=== PATIENT | female | born 1980 | race Caucasian/White ===

== ENCOUNTER 2016-07-28 18:12 | Emergency (ER) | payer OTHER ==
[~2016-07-28] VITALS: Wt 67.0 kg
[~2016-07-28 18:12] MED LIST: ACET1TAB40 PO; ACET325T45 PO; AMO500 PO; IBUP-1542 PO; PANT40TA3 PO
[2016-07-28] MEDS ORDERED: IBUP-1542 PO (19:04)
[2016-07-28] MEDS ORDERED: GUAI120S26 PO (19:04)
[2016-07-28] MEDS ORDERED: CETI10CA PO (19:04)
--- NOTE | 2016-07-28 19:08 | ERD ---
ER Documentation Chief Complaint Date/Time DATE: 07/28/16 TIME: 19:06 Chief Complaint SORE THROAT AND COUGH AND RUNNY NOSE FOR A MONTH NO DISTRESS HPI 36 or female presents to emergency department for complaints of cough and runny nose congestion and sore throat on and off for amount, now is having symptoms for the last 2 days. Patient has been having dry cough, does not cough up any phlegm or blood. Patient does not have any shortness of breath wheezing. Patient gets the symptoms on and off, got better, started to have the symptoms again in the last 2 days. Patient took some Tylenol for the sore throat with mild relief. Patient does not have dyspnea on exertion or dyspnea on lying him. Patient does not have any chest pain or palpitation. Patient does not have any fever or chills. ROS All systems reviewed and are negative except as per history of present illness. Medications Home Meds Active Scripts Ibuprofen* (Motrin*) 600 Mg Tab, 600 MG PO Q6H Y for PAIN AND OR ELEVATED TEMP, #30 TAB Prov:LIO PINTO NP 07/28/16 Cetirizine Hcl* (Zyrtec*) 10 Mg Capsule, 10 MG PO DAILY, #30 TAB.CHEW Prov:LIO PINTO NP 07/28/16 Uymuwxhulur-D-Xlcomvgbed Hb* (Guaifenesin* DM Syrup) 120 Ml Syrup, 10 ML PO Q4H Y for COUGH, #120 ML Prov:LIO PINTO NP 07/28/16 Amoxicillin* (Amoxicillin*) 500 Mg Cap, 500 MG PO TID for 10 Days, CAP Prov:MELISSA LAMAS DO 01/24/16 Acetaminophen* (Acetaminophen*) 325 Mg Tablet, 325 MG PO Q4H Y for PAIN AND OR ELEVATED TEMP, #30 TAB Prov:MELISSA LAMAS DO 01/24/16 Ibuprofen* (Ibuprofen*) 600 Mg Tablet, 600 MG PO Q8, #20 TAB Prov:MELISSA LAMAS DO 01/24/16 Acetaminophen-Codeine* (Acetaminophen-Cod #3*) 300-30 Mg Tab, 1 TAB PO Q4H Y for PAIN, #14 TAB Prov:CARSON HILL MD 01/30/15 Pantoprazole* (Protonix*) 40 Mg Tablet.dr, 40 MG PO DAILY, #20 TAB Prov:CARSON HILL MD 01/30/15 Ibuprofen* (Motrin*) 600 Mg Tab, 600 MG PO Q6, #20 TAB Prov:CARSON HILL MD 12/24/14 Allergies Allergies: Coded Allergies: No Known Allergy (Unverified , 06/02/14) PMhx/Soc History of Surgery: Yes (C SECTION X 2 ) Hx Alcohol Use: No Hx Substance Use: No Hx Tobacco Use: No FmHx Family History: No coronary disease, No diabetes, No other Physical Exam Vitals Vital Signs Date Time Temp Pulse Resp B/P Pulse Ox O2 Delivery O2 Flow Rate FiO2 07/28/16 18:21 99.2 72 20 114/75 100 Physical Exam GENERAL: The patient is well developed and appropriate for usual state of health, in no apparent distress. HEENT: Atraumatic. Ears: Normal tympanic membrane, no erythema or bulging. No ear canal swelling. No ear discharge. Nose: Erythematous nasal turbinates with clear nasal discharge. Throat: oropharynx erythematous with postnasal drip. No tonsillar swelling or tonsillar exudates. No lymphadenopathy. CHEST: Clear to auscultation bilaterally. There are no rales, wheezes or rhonchi. HEART: Regular rate and rhythm. No murmurs, clicks, rubs or gallops. No S3 or S4. ABDOMEN: Soft, nontender and nondistended. Good bowel sounds. No rebound or guarding. No gross peritonitis. No gross organomegaly or masses. No Wang sign or McBurney point tenderness. BACK: No midline or flank tenderness. EXTREMITIES: Equal pulses bilaterally. There is no peripheral clubbing, cyanosis or edema. No focal swelling or erythema. Full range of motion. Grossly neurovascularly intact. NEURO: Alert and oriented. Cranial nerves 2-12 intact. Motor strength in all 4 extremities with 5/5 strength. Sensation grossly intact. Normal speech and gait. SKIN: There is no apparent rash or petechia. The skin is warm and dry. HEMATOLOGIC AND LYMPHATIC: There is no evidence of excessive bruising or lymphedema. No gross cervical, axillary, or inguinal lymphadenopathy. Procedures/MDM Medical Decision Making: Patient symptoms are most likely consistent with upper respiratory tract infection which viral in origin. There is low suspicion for Pneumonia at this time since patients lungs sounds are clear, patient O2 saturation is normal and patient doesnt show any respiratory distress. Radiology exam is not indicated at this time. There is low suspicion for other cardiopulmonary emergencies at this time such as CHF, Pulmonary Embolism, Pneumothorax, Aortic Aneurysm or any other cardiopulmonary emergencies at this time. There is low suspicion for sepsis. Patient appears well and is hemodynamically stable. Fever is controlled with medicines. Disposition: Home. Condition: Stable Prescriptions: Guaifenesin DM Zyrtec ibuprofen Instructions: Patient is advised to take medications as prescribed. Patient is advised to rest. Patient advised to increase fluid intake, do humidifier at home and if possible, do salt water gargles. Patient is advised that if symptoms are worse, shortness of breath, uncontrolled fever, stridor, vomiting, worst signs and symptoms to return to emergency department immediately. Otherwise, patient is advised to follow up with primary doctor in 5-7 days. Departure Diagnosis: Primary Impression: URI (upper respiratory infection) URI type: unspecified viral URI Qualified Code: J06.9 - Viral upper respiratory tract infection Condition: Stable Patient Instructions: Uri, Viral, No Abx (Adult) LIO PINTO NP Jul 28, 2016 19:08
== END 2016-07-28 19:06 | disposition home or self-care (01) ==
LOC: E/R 18:12
DX: J06.9 Acute upper respiratory infection, unspecified (principal)
CPT/HCPCS: 99283

== ENCOUNTER 2016-10-18 22:02 | Emergency (ER) | payer OTHER ==
[~2016-10-18] VITALS: Ht 152.4 cm; Wt 71.0 kg
[~2016-10-18 22:02] MED LIST changes: +CETI10CA PO; +GUAI120S26 PO
[2016-10-18 22:05] VITALS: Ht 152.4 cm; Wt 71.0 kg
[2016-10-18 22:58] LABS: URINE BLOOD (Dip) POC Negative (NEGATIVE)
[2016-10-18 23:15] LABS: ADD SCAN DIFF NO
[2016-10-18 23:16] LABS: BASOPHILS % 0.3 % (0.0-2.0); EOSINOPHILS # 0.1 10^3/ul (0.0-0.5); EOSINOPHILS % 0.7 % (0.0-7.0); HEMATOCRIT 36.5 % (37.0-47.0); HEMOGLOBIN 12.7 g/dl (12.0-16.0); LYMPHOCYTES # 3.2 10^3/ul (0.8-2.9); LYMPHOCYTES % 27.4 % (15.0-51.0); MEAN CORPUSCULAR HEMOGLOBIN 30.7 pg (29.0-33.0); MEAN CORPUSCULAR HGB CONC 34.8 g/dl (32.0-37.0); MEAN CORPUSCULAR VOLUME 88.2 fl (82.0-101.0); MEAN PLATELET VOLUME 11.2 fl (7.4-10.4); MONOCYTE # 0.7 10^3/ul (0.3-0.9); MONOCYTES % 6.2 % (0.0-11.0); NEUTROPHIL # 7.6 10^3/ul (1.6-7.5); NEUTROPHILS % 65.1 % (39.0-77.0); PLATELET COUNT 226 10^3/UL (140-415); RED BLOOD COUNT 4.14 10^6/ul (4.20-5.40); RED CELL DISTRIBUTION WIDTH 12.6 % (11.5-14.5); WHITE BLOOD COUNT 11.7 10^3/ul (4.8-10.8)
[2016-10-18 23:39] LABS: ALBUMIN/GLOBULIN RATIO 1.11; BILIRUBIN,INDIRECT 0.2 mg/dl (0-1.1); BILIRUBIN,TOTAL 0.2 mg/dl (0.2-1.3); CALCIUM 9.2 mg/dl (8.4-10.2); CREATININE 0.66 mg/dl (0.44-1.00); POTASSIUM 4.3 mmol/L (3.5-5.1); TOTAL PROTEIN 7.6 g/dl (6.1-8.1)
--- NOTE | 2016-10-19 01:15 | RADRPT ---
PROCEDURE: CT abdomen and pelvis without intravenous contrast. CLINICAL INDICATION: Right lower quadrant pain. TECHNIQUE: CT of the abdomen/pelvis was performed utilizing axial images with reconstructions in s agittal and coronal planes. The administered radiation dose is CTDI 9.4 mGy, DLP 529 mGy-cm. COMPARISON: No pertinent prior examinations were submitted for comparison. FINDINGS: Visualized Chest: The visualized lung bases are clear. Abdomen: The liver, spleen, pancreas, gallbladder,and adrenal glands are unremarkable. The kidneys are without hydronephrosis. No definite urinary calculi are seen. There is no evidence of bowel obstruction. The appendix is not seen. There is no evidence of acute appendicitis. No intra-abdominal free air is seen. There is no evidence of intra-abdominal adenopathy or free fluid. Pelvis: Large cystic lesions are noted within the pelvis bilaterally, including a 5.6 x 8.7 cm septated lesi on on the right and a 5.9 x 4.5 cm lesion on the left. These are presumably within the ovaries. Th e uterus is slightly prominent in size with a prominent endometrium. There is no pelvic adenopathy or free fluid. The urinary bladder is unremarkable. Osseous structures: Unremarkable. IMPRESSION: Large cystic ovarian lesions within the pelvis along with enlargement of the endometrium and likely some endometrium thickening. Please refer to the separately dictated ultrasound of the pelvis. No evidence of acute appendicitis. RPTAT: HIKT .Neymar Duarte MD, MD Date Time Electronically viewed and signed by .Neymar Duarte MD, on 10/19/2016 01:14 .T/
--- NOTE | 2016-10-19 01:34 | ERD ---
ER Documentation Chief Complaint Date/Time DATE: 10/19/16 TIME: 01:30 Chief Complaint Pelvic pain. denies dysuria. LMP 09/29/16 and not aware if she is HPI Patient is a 36-year-old female who presents emergency department with right lower quadrant pain 3 days. States the pain is getting gradually worse. Patient states the pain is colicky in nature. Patient denies taking any pain medication. Patient states she did vomit 1 yesterday. Patient reports nonbloody nonbilious vomiting. Patient states her last menstrual period was on 09-29-16 however she is unsure if she is . Patient denies any dysuria, frequency, urgency or hematuria. Patient denies any fevers, chills, chest pain , shortness of breath, nausea, diarrhea or loss of consciousness. She does admit to having C-sections, + history of abdominal surgeries. No recent travel. No sick contacts. ROS All systems reviewed and are negative except as per history of present illness. Medications Home Meds Active Scripts Ibuprofen* (Motrin*) 600 Mg Tab, 600 MG PO Q6, #30 TAB Prov:IKER PAUL PA-C 10/19/16 Ibuprofen* (Motrin*) 600 Mg Tab, 600 MG PO Q6H Y for PAIN AND OR ELEVATED TEMP, #30 TAB Prov:LIO PINTO NP 07/28/16 Cetirizine Hcl* (Zyrtec*) 10 Mg Capsule, 10 MG PO DAILY, #30 TAB.CHEW Prov:LIO PINTO NP 07/28/16 Tjtsjfycuni-S-Ilbdghajkl Hb* (Guaifenesin* DM Syrup) 120 Ml Syrup, 10 ML PO Q4H Y for COUGH, #120 ML Prov:LIO PINTO MACHINE HAMPER MAKER 07/28/16 Amoxicillin* (Amoxicillin*) 500 Mg Cap, 500 MG PO TID for 10 Days, CAP Prov:MELISSA LAMAS DO 01/24/16 Acetaminophen* (Acetaminophen*) 325 Mg Tablet, 325 MG PO Q4H Y for PAIN AND OR ELEVATED TEMP, #30 TAB Prov:MELISSA LAMAS DO 01/24/16 Ibuprofen* (Ibuprofen*) 600 Mg Tablet, 600 MG PO Q8, #20 TAB Prov:MELISSA LAMAS DO 01/24/16 Acetaminophen-Codeine* (Acetaminophen-Cod #3*) 300-30 Mg Tab, 1 TAB PO Q4H Y for PAIN, #14 TAB Prov:CARSON HILL MD 01/30/15 Pantoprazole* (Protonix*) 40 Mg Tablet.dr, 40 MG PO DAILY, #20 TAB Prov:CARSON HILL MD 01/30/15 Ibuprofen* (Motrin*) 600 Mg Tab, 600 MG PO Q6, #20 TAB Prov:CARSON HILL MD 12/24/14 Allergies Allergies: Coded Allergies: No Known Allergy (Unverified , 06/02/14) PMhx/Soc History of Surgery: Yes (c/section x 2) Hx Alcohol Use: No Hx Substance Use: No Hx Tobacco Use: No Smoking Status: Never smoker Physical Exam Vitals Vital Signs Date Time Temp Pulse Resp B/P Pulse Ox O2 Delivery O2 Flow Rate FiO2 10/18/16 22:05 98.2 69 20 124/74 100 Physical Exam GENERAL: Well-developed, well-nourished female. Appears in no acute distress. HEAD: Normocephalic, atraumatic. EYES: Pupils are equally reactive bilaterally. EOMs grossly intact. No conjunctival erythema. ENT: Moist mucous membranes. No uvula deviation. No kissing tonsils. NECK: Supple. No meningismus. Normal range of motion of the neck. LUNG: Clear to auscultation bilaterally. No rhonchi, wheezing, rales or coarse breath sounds. HEART: Regular rate and rhythm. No murmurs, rubs or gallops. ABDOMEN: No rashes noted. Soft and nondistended. Slightly tender to palpation in the right lower quadrant and right pelvic region. Positive bowel sounds in all four quadrants. No rebound tenderness, no guarding. (-) McBurney's point tenderness. No CVA tenderness. BACK: No midline tenderness. EXTREMITIES: Equal pulses bilaterally. No peripheral clubbing, cyanosis or edema. No unilateral leg swelling. NEUROLOGIC: Alert and oriented. Moving all four extremities without any difficulty. Normal speech. Steady gait. SKIN: Normal color. Warm and dry. No rashes or lesions. Result Diagram: 10/18/16 2300 10/18/16 2300 Results 24 hrs Laboratory Tests Test 10/18/16 22:59 10/18/16 23:00 Bedside Urine pH (LAB) 5.5 Bedside Urine Protein (LAB) Negative Bedside Urine Glucose (UA) Negative Bedside Urine Ketones (LAB) Negative Bedside Urine Blood Negative Bedside Urine Nitrite (LAB) Negative Bedside Urine Leukocyte Esterase (L Negative White Blood Count 11.710^3/ul Red Blood Count 4.1410^6/ul Hemoglobin 12.7g/dl Hematocrit 36.5% Mean Corpuscular Volume 88.2fl Mean Corpuscular Hemoglobin 30.7pg Mean Corpuscular Hemoglobin Concent 34.8g/dl Red Cell Distribution Width 12.6% Platelet Count 20933^3/UL Mean Platelet Volume 11.2fl Neutrophils % 65.1% Lymphocytes % 27.4% Monocytes % 6.2% Eosinophils % 0.7% Basophils % 0.3% Nucleated Red Blood Cells % 0.0/100WBC Neutrophils # 7.610^3/ul Lymphocytes # 3.210^3/ul Monocytes # 0.710^3/ul Eosinophils # 0.110^3/ul Basophils # 0.010^3/ul Nucleated Red Blood Cells # 0.010^3/ul Sodium Level 139mmol/L Potassium Level 4.3mmol/L Chloride Level 108mmol/L Carbon Dioxide Level 24mmol/L Anion Gap 11 Blood Urea Nitrogen 12mg/dl Creatinine 0.66mg/dl Glucose Level 99mg/dl Calcium Level 9.2mg/dl Total Bilirubin 0.2mg/dl Direct Bilirubin 0.00mg/dl Indirect Bilirubin 0.2mg/dl Aspartate Amino Transf (AST/SGOT) 21IU/L Alanine Aminotransferase (ALT/SGPT) 29IU/L Alkaline Phosphatase 65IU/L Total Protein 7.6g/dl Albumin 4.0g/dl Globulin 3.60g/dl Albumin/Globulin Ratio 1.11 Lipase 96U/L Current Medications Medications (Trade) Dose Ordered Sig/Ramonita Route PRN Reason Start Time Stop Time Status Last Admin Dose Admin Ketorolac Tromethamine (Toradol) 30 mg ONCE STAT IM 10/19/16 01:46 10/19/16 01:53 DC Ibuprofen (Motrin) 600 mg ONCE ONCE PO 10/19/16 02:00 10/19/16 02:01 10/19/16 01:54 Procedures/MDM ED COURSE: The patient was stable throughout ED course. I kept the patient and/or family informed of laboratory and diagnostic imaging results throughout the ED course. DIAGNOSTIC IMAGING: Read by radiologist. DIAGNOSTIC IMAGING REPORT Patient: MARSHALL CORTES : 1980 Age: 36 Sex: F MR #: [id number] DOS: 10/18/16 2324 Ordering MD: IKER PAUL PA-C Location: [facility] Room/Bed: PROCEDURE: CT abdomen and pelvis without intravenous contrast. CLINICAL INDICATION: Right lower quadrant pain. TECHNIQUE: CT of the abdomen/pelvis was performed utilizing axial images with reconstructions in sagittal and coronal planes. The administered radiation dose is CTDI 9.4 mGy, DLP 529 mGy-cm. COMPARISON: No pertinent prior examinations were submitted for comparison. FINDINGS: Visualized Chest: The visualized lung bases are clear. Abdomen: The liver, spleen, pancreas, gallbladder,and adrenal glands are unremarkable. The kidneys are without hydronephrosis. No definite urinary calculi are seen. There is no evidence of bowel obstruction. The appendix is not seen. There is no evidence of acute appendicitis. No intra-abdominal free air is seen. There is no evidence of intra-abdominal adenopathy or free fluid. Pelvis: Large cystic lesions are noted within the pelvis bilaterally, including a 5.6 x 8.7 cm septated lesion on the right and a 5.9 x 4.5 cm lesion on the left. These are presumably within the ovaries. The uterus is slightly prominent in size with a prominent endometrium. There is no pelvic adenopathy or free fluid. The urinary bladder is unremarkable. Osseous structures: Unremarkable. IMPRESSION: Large cystic ovarian lesions within the pelvis along with enlargement of the endometrium and likely some endometrium thickening. Please refer to the separately dictated ultrasound of the pelvis. No evidence of acute appendicitis. RPTAT: HIKT .Neymar Duarte MD, MD Date Time Electronically viewed and signed by .Neymar Duarte MD, on 10/19/2016 01:14 .T/ CC: IKER PAUL PA-C Patient Name Marshall Cortes Study Date 10/18/2016 11:34 PM Patient 1980 Accession No. [id number] Referring Physician Iker Paul Pa-c PROCEDURE: Ultrasound of the pelvis. CLINICAL INDICATION: Pain TECHNIQUE: Transabdominal and transvaginal ultrasound of the pelvis was performed to better evaluate the pelvic viscera. COMPARISON: No pertinent prior examinations were submitted for comparison. FINDINGS: LAST MENSTRUAL PERIOD: Unavailable UTERUS: Size: 10.9 x 5.8 x 6.5 cm. The uterine texture is homogeneous. The endometrium measures 27 mm which is thickened. The head there is a 1.8 x 1.5 x 1.6 cm avascular homogeneously echogenic structure within the endometrium at the fundus. RIGHT OVARY: Size: 8.8 x 6 x 8.5 cm. At least 3 large cysts are noted within the right ovary , measuring up to 6.1 cm. These are anechoic. Normal Doppler flow is noted to the right ovary. LEFT OVARY: Size: 7.5 x 6.6 x 6 cm. There is a simple cyst within the left ovary which measures up to 5.8 cm. Normal Doppler flow is noted to the left ovary. CUL-DE-SAC: There is a small amount of pelvic free fluid. IMPRESSION: Thickened endometrium containing an echogenic avascular structure, possibly some clot. Correlation with gynecologic examination is suggested. Large bilateral ovarian cysts. Vascular flow within both ovaries suggesting torsion is unlikely. RPTAT: HIKT Signed By: Neymar Duarte 10/19/2016 1:21:21 AM MEDICATIONS GIVEN: [None.] Patient tolerated medication well with no adverse reactions. Patient reported improvement in pain. MEDICAL DECISION MAKING: This is a 36-year-old female presents with right lower quadrant pain 3 days. Patient did report one episode of nonbloody some bloody vomiting yesterday. Vital signs were reviewed. Patient is afebrile. CBC showed no evidence of severe anemia. Patient is white count was noted to be 11.7. CMP showed no evidence of electrolyte abnormalities, severe acidosis, alkalosis, renal failure, or liver disease. Lipase showed no evidence of acute pancreatitis. Urine dip showed no evidence of acute infection or hematuria. Low suspicion for UTI, pyelonephritis or nephrolithiasis. Urine test was negative. CT abdomen and pelvis was negative for acute appendicitis. Pelvic US showed thickened endometrium containing an echogenic avascular structure, possibly some clot. Correlation with gynecologic examination is suggested. Large bilateral ovarian cysts. Vascular flow within both ovaries suggesting torsion is unlikely. At this time, patient's presentation is most consistent with ovarian cysts. I have a much lower clinical concern for acute coronary syndrome, AAA, mesenteric ischemia, lower lobe pneumonia, DKA, bowel perforation, bowel obstruction, cholecystitis, choledocholithiasis, pancreatitis , PUD, gastritis, diverticulitis, UTI, pyelonephritis, nephrolithiasis, appendicitis, constipation, , ectopic , PID, ovarian torsion. I explained to the patient, using senior technical project manager translation, that the size of her ovarian cysts are at increased risk of torsion. Plan to the patient that currently both her ovaries have normal blood flow. Patient understands that she should continue to monitor her symptoms closely and return for any new or worsening pain. Patient understands. Patient should follow-up with her INNERS[employer]KER in the next 1-2 days. PRESCRIPTIONS: Ibuprofen DISCHARGE: At this time, patient is stable for discharge and outpatient management. Patient provided with a copy of all imaging and lab studies obtained today. I have instructed the patient to follow-up with his/her primary care physician in 1-2 days. I have instructed the patient to promptly return to the ER at any time for any new or worsening symptoms including increased pain, nausea, vomiting, diarrhea, fever, weakness or LOC. The patient and/or family expressed understanding of and agreement with this plan. All questions were answered. Home care instructions were provided. Departure Diagnosis: Primary Impression: Pelvic pain Additional Impression: Ovarian cyst Laterality: bilateral Qualified Code: N83.201 - Cysts of both ovaries Condition: Stable Patient Instructions: Pelvic Pain, Unknown Cause Referrals: [facility] [place] [address] [facility] [address] [place] [address] OFFICE FAX LISA BAINNICA [address] [place], [place] [id number] [facility] [address] [place], [place] [id number] DR BERMAN, HESHMAT [address] [facility], [address], [place] [address] BRIANNA GAMINO [address] [address] [facility], [place] [address] [facility] [address] [place] [address] [phone] [facility], [facility] [id number] - [address] FIGUEREDO, OSCAR [address], [place] [facility] [address] [address] ALMEIDA, LAURIE [address] [facility]. [address], [place] [address] [address] PIZANO, [facility] [address] [place], [place] [id number] Additional Instructions: Call your primary care doctor/OBGYN TOMORROW for an appointment during the next 1-2 days.See the doctor sooner or return here if your condition worsens before your appointment time. IKER PAUL PA-C October 19, 2016 01:34
[2016-10-19] MEDS ORDERED: KETOROLAC 30 MG INJ IM STA (01:46)
[2016-10-19] MEDS ORDERED: IBUP-1542 PO (01:54)
[2016-10-19] MEDS ORDERED: IBUPROFEN 600 MG TAB PO ONE (02:00)
[2016-10-19 02:04] VITALS: BP 131/89; PULSE 69; RESP 16; TEMP 98.3
== END 2016-10-19 02:06 | disposition home or self-care (01) ==
LOC: FTE 22:02
DX: R10.2 Pelvic and perineal pain (principal); N83.201 Unspecified ovarian cyst, right side; N83.202 Unspecified ovarian cyst, left side
CPT/HCPCS: 36415; 74176; 76830; 76856; 80053; 81003; 83690; 85025; J1885; Z7502; Z7610

== ENCOUNTER 2016-11-28 02:06 | Emergency (ER) | payer OTHER ==
[~2016-11-28] VITALS: Wt 72.5 kg
--- NOTE | 2016-11-28 02:43 | ERA ---
ER Documentation Chief Complaint Date/Time DATE: 11/28/16 TIME: 02:42 Chief Complaint AP x3 days. Denies HPI The patient is a 36-year-old female, presenting to the ER because of intermittent epigastric abdominal pain for the last 3 days. She denies fever, chills, neck pain, chest pain, nausea, vomiting, dysuria, diarrhea. She was in the ER recently about 3 weeks ago when she had extensive the workup, including abdominal ultrasound and abdominopelvic CT. she does not smoke nor drink Past medical history: History of bilateral ovarian cyst Past surgical history: ROS All systems reviewed and are negative except as per history of present illness. Medications Home Meds Active Scripts Ondansetron (Ondansetron Odt) 4 Mg Tab.rapdis, 4 MG PO Q6H Y for NAUSEA AND/OR VOMITING, #10 TAB Prov:DORIS RAMSAY MD 11/28/16 Ibuprofen* (Motrin*) 600 Mg Tab, 600 MG PO Q6, #30 TAB Prov:IKER PROCTOR PA-C 10/19/16 Discontinued Scripts Ibuprofen* (Motrin*) 600 Mg Tab, 600 MG PO Q6H Y for PAIN AND OR ELEVATED TEMP, #30 TAB Prov:LIO PINTO NP 07/28/16 Cetirizine Hcl* (Zyrtec*) 10 Mg Capsule, 10 MG PO DAILY, #30 TAB.CHEW Prov:LIO PINTO NP 07/28/16 Zwaptuotbhf-Z-Chthzjobml Hb* (Guaifenesin* DM Syrup) 120 Ml Syrup, 10 ML PO Q4H Y for COUGH, #120 ML Prov:LIO PINTO NP 07/28/16 Amoxicillin* (Amoxicillin*) 500 Mg Cap, 500 MG PO TID for 10 Days, CAP Prov:MELISSA LAMAS DO 01/24/16 Acetaminophen* (Acetaminophen*) 325 Mg Tablet, 325 MG PO Q4H Y for PAIN AND OR ELEVATED TEMP, #30 TAB Prov:MELISSA LAMAS DO 01/24/16 Ibuprofen* (Ibuprofen*) 600 Mg Tablet, 600 MG PO Q8, #20 TAB Prov:MELISSA LAMAS DO 01/24/16 Acetaminophen-Codeine* (Acetaminophen-Cod #3*) 300-30 Mg Tab, 1 TAB PO Q4H Y for PAIN, #14 TAB Prov:CARSON HILL MD 01/30/15 Pantoprazole* (Protonix*) 40 Mg Tablet.dr, 40 MG PO DAILY, #20 TAB Prov:CARSON HILL MD 01/30/15 Ibuprofen* (Motrin*) 600 Mg Tab, 600 MG PO Q6, #20 TAB Prov:CARSON HILL MD 12/24/14 Allergies Allergies: Coded Allergies: No Known Allergy (Unverified , 11/28/16) PMhx/Soc History of Surgery: Yes (c/section x 2) Hx Alcohol Use: No Hx Substance Use: No Hx Tobacco Use: No Physical Exam Vitals Vital Signs Date Time Temp Pulse Resp B/P Pulse Ox O2 Delivery O2 Flow Rate FiO2 11/28/16 05:18 70 18 131/68 99 Room Air 11/28/16 02:18 99.0 76 20 154/87 99 Physical Exam Const: No acute distress. Head: Atraumatic. Eyes: Normal Conjunctiva. ENT: Normal External Ears, Nose and Mouth. Neck: Full range of motion. No meningismus. Resp: Clear to auscultation bilaterally. Cardio: Regular rate and rhythm. Abd: Soft, non distended, normal bowel sounds, minimal epigastric discomfort, no right lower quadrant, right upper quadrant, CVA tenderness Skin: No petechiae or rashes. Back: No midline or flank tenderness. Ext: No cyanosis, or edema. Neur: Awake and alert. No focal deficit Psych: Normal Mood and Affect. Result Diagram: 11/28/16 0255 11/28/16 0255 Results 24 hrs Laboratory Tests Test 11/28/16 02:55 11/28/16 04:33 White Blood Count 12.610^3/ul Red Blood Count 4.2510^6/ul Hemoglobin 12.3g/dl Hematocrit 37.0% Mean Corpuscular Volume 87.1fl Mean Corpuscular Hemoglobin 28.9pg Mean Corpuscular Hemoglobin Concent 33.2g/dl Red Cell Distribution Width 12.6% Platelet Count 00735^3/UL Mean Platelet Volume 10.4fl Neutrophils % 68.4% Lymphocytes % 25.1% Monocytes % 5.7% Eosinophils % 0.3% Basophils % 0.2% Nucleated Red Blood Cells % 0.0/100WBC Neutrophils # 8.610^3/ul Lymphocytes # 3.210^3/ul Monocytes # 0.710^3/ul Eosinophils # 0.010^3/ul Basophils # 0.010^3/ul Nucleated Red Blood Cells # 0.010^3/ul Sodium Level 143mmol/L Potassium Level 3.6mmol/L Chloride Level 107mmol/L Carbon Dioxide Level 26mmol/L Anion Gap 14 Blood Urea Nitrogen 8mg/dl Creatinine 0.68mg/dl Glucose Level 103mg/dl Calcium Level 9.3mg/dl Total Bilirubin 0.2mg/dl Direct Bilirubin 0.00mg/dl Indirect Bilirubin 0.2mg/dl Aspartate Amino Transf (AST/SGOT) 26IU/L Alanine Aminotransferase (ALT/SGPT) 30IU/L Alkaline Phosphatase 86IU/L Total Protein 8.1g/dl Albumin 4.9g/dl Globulin 3.20g/dl Albumin/Globulin Ratio 1.53 Lipase 71U/L Bedside Urine pH (LAB) 6.0 Bedside Urine Protein (LAB) Negative Bedside Urine Glucose (UA) Negative Bedside Urine Ketones (LAB) Negative Bedside Urine Blood Trace-lysed Bedside Urine Nitrite (LAB) Negative Bedside Urine Leukocyte Esterase (L Negative Current Medications Medications (Trade) Dose Ordered Sig/Ramonita Route PRN Reason Start Time Stop Time Status Last Admin Dose Admin Sodium Chloride (NS) 1,000 ml @ 1,000 mls/hr Q1H STAT IV 11/28/16 02:49 11/28/16 03:48 DC Ondansetron HCl (Zofran Inj) 4 mg ONCE STAT IV 11/28/16 02:49 11/28/16 02:51 DC Pantoprazole (Protonix Iv) 40 mg ONCE ONCE IV 11/28/16 03:00 11/28/16 03:01 DC Procedures/MDM MEDICAL MAKING DECISION: The patient is a 36-year-old female, presenting with epigastric abdominal discomfort of unclear etiology She was treated with Protonix IV, Zofran IV and 1 L normal saline for clinical dehydration with good response The differential diagnoses considered include but are not limited to cholelithiasis, cholecystitis, cystitis, pancreatitis, hepatitis, gastritis, peptic ulcer disease, gastric ulcer, appendicitis, diverticulitis, cholangitis, choledocholithiasis, partial small bowel obstruction. Departure Diagnosis: Primary Impression: Abdominal pain Condition: Good Comments She was discharged with Zofran and Protonix I discussed the findings with the patient. I advised the patient to follow-up with the primary physician in about 1-2 days, sooner if needed and return if any concern. The patient's blood pressure was elevated (>120/80) but appears stable without evidence of hypertension emergency or urgency. The patient was counseled about the risks of hypertension and urged to pursue outpatient monitoring and therapy within a week with their primary care physician. DORIS RAMSAY MD Nov 28, 2016 02:43
[2016-11-28] MEDS ORDERED: SOD CHLORIDE 0.9% 1,000 ML IV STA (02:49)
[2016-11-28] MEDS ORDERED: ONDANSETRON 4 MG INJ IV STA (02:49)
[2016-11-28] MEDS ORDERED: PANTOPRAZOLE 40 MG INJ IV ONE (03:00)
[2016-11-28 03:15] LABS: ADD SCAN DIFF NO
[2016-11-28 03:23] LABS: BASOPHILS % 0.2 % (0.0-2.0); EOSINOPHILS % 0.3 % (0.0-7.0); HEMOGLOBIN 12.3 g/dl (12.0-16.0); LYMPHOCYTES # 3.2 10^3/ul (0.8-2.9); LYMPHOCYTES % 25.1 % (15.0-51.0); MEAN CORPUSCULAR HEMOGLOBIN 28.9 pg (29.0-33.0); MEAN CORPUSCULAR HGB CONC 33.2 g/dl (32.0-37.0); MEAN CORPUSCULAR VOLUME 87.1 fl (82.0-101.0); MEAN PLATELET VOLUME 10.4 fl (7.4-10.4); MONOCYTE # 0.7 10^3/ul (0.3-0.9); MONOCYTES % 5.7 % (0.0-11.0); NEUTROPHIL # 8.6 10^3/ul (1.6-7.5); NEUTROPHILS % 68.4 % (39.0-77.0); PLATELET COUNT 313 10^3/UL (140-415); RED BLOOD COUNT 4.25 10^6/ul (4.20-5.40); RED CELL DISTRIBUTION WIDTH 12.6 % (11.5-14.5); WHITE BLOOD COUNT 12.6 10^3/ul (4.8-10.8)
[2016-11-28 03:47] LABS: ALBUMIN 4.9 g/dl (3.3-4.9); ALBUMIN/GLOBULIN RATIO 1.53; BILIRUBIN,INDIRECT 0.2 mg/dl (0-1.1); BILIRUBIN,TOTAL 0.2 mg/dl (0.2-1.3); CALCIUM 9.3 mg/dl (8.4-10.2); CREATININE 0.68 mg/dl (0.44-1.00); POTASSIUM 3.6 mmol/L (3.5-5.1); TOTAL PROTEIN 8.1 g/dl (6.1-8.1)
[2016-11-28 04:31] LABS: URINE BLOOD (Dip) POC Trace-lysed (NEGATIVE)
[2016-11-28] MEDS ORDERED: ONDA4TAB14 PO (05:03)
[2016-11-28 05:18] VITALS: BP 131/68; PULSE 70; RESP 18
== END 2016-11-28 05:24 | disposition home or self-care (01) ==
LOC: E/R 02:06
DX: R10.13 Epigastric pain (principal)
CPT/HCPCS: 80053; 81003; 83690; 85025; J2405; J7030; Z7610; 36415; 99283; C9113

== ENCOUNTER 2018-08-26 21:15 | Emergency (ER) | payer OTHER ==
[~2018-08-26] VITALS: Wt 69.1 kg
[~2018-08-26 21:15] MED LIST changes: -ACET1TAB40 PO; -ACET325T45 PO; -AMO500 PO; -CETI10CA PO; -GUAI120S26 PO; +ONDA4TAB14 PO; -PANT40TA3 PO
[2018-08-26 21:20] VITALS: BP 154/75; PULSE 75; RESP 20
--- NOTE | 2018-08-27 01:18 | ERD ---
ER Documentation Chief Complaint Chief Complaint COUGH/SORE THROAT FEVER [id number] HPI 38-year-old female, previously healthy, presents the emergency department, complaining of fever, headache, sore throat and general malaise for 2 weeks. She has tried [id number] medication without improvement of the symptoms, she denies shortness of breath, no chest pain, no abdominal pain. ROS All systems reviewed and are negative except as per history of present illness. Medications Home Meds Active Scripts Ibuprofen* (Motrin*) 600 Mg Tab, 600 MG PO Q8, #20 TAB Prov:DARCY DOUGHERTY MD 08/27/18 Azithromycin* (Zithromax*) 250 Mg Tablet, 250 MG PO .ZPACK DIRECTED, #6 TAB TAKE 500 MG (2 TABS) THE FIRST DAY THEN 250 MG (1 TAB) DAYS 2-5 Prov:DARCY DOUGHERTY MD 08/27/18 Ondansetron (Ondansetron Odt) 4 Mg Tab.rapdis, 4 MG PO Q6H PRN for NAUSEA AND/OR VOMITING, #10 TAB Prov:DORIS RAMSAY MD 11/28/16 Ibuprofen* (Motrin*) 600 Mg Tab, 600 MG PO Q6, #30 TAB Prov:IKER PROCTOR PA-C 10/19/16 Allergies Allergies: Coded Allergies: No Known Allergy (Unverified , 11/28/16) PMhx/Soc History of Surgery: Yes (c/section x 2) Hx Alcohol Use: No Hx Substance Use: No Hx Tobacco Use: No FmHx Family History: No diabetes, No coronary disease Physical Exam Vitals Vital Signs Date Temp Pulse Resp B/P (MAP) Pulse Ox O2 O2 Flow FiO2 Time Delivery Rate 08/26/18 99.0 75 20 154/75 99 21:20 (101) Physical Exam Patient is in moderate distress due to pain. EYES: PERRLA, EOMI, injected sclerae EARS: Canals clear, erythematous tympanic membranes THROAT: Erythematous oropharynx with bilateral exudates NECK: Supple, + tender cervical lymphadenopathy. Full ROM without pain or tenderness. HEART: RRR, no rubs, murmurs, clicks or gallops. LUNGS: Bilateral rhonchi to auscultation. ABDOMEN: Soft, non-tender without masses or hepatosplenomegaly. EXTREMITIES: No edema bilaterally. BACK: Full ROM, no deformity, normal back exam NEURO: Cranial nerves grossly intact, no motor or sensory deficit Procedures/MDM Differential diagnosis include but not limited to: Tonsillar/pharyngeal infection bacterial/viral/fungal, parotitis, allergies, GERD. Less likely peritonsillar abscess, retropharyngeal abscess. No signs of upper respiratory obstruction Physical examination and clinical presentation consistent most likely with acute suppurative tonsillitis. During the ED course the patient remained stable, fever resolved with medications given in the ER, no new complaints. Clinical impression discussed with the patient who agrees with management. The patient is stable to be treated outpatient and will be discharged home with a Rx for antibiotic and ibuprofen. Some side effects of prescribed medications (headache, rash, nausea, vomiting, diarrhea, drowsiness, habituation, bleeding, hypertension, interactions with other medications) were reviewed. The patient was instructed to follow up with the primary care provider in the next 48h. If symptoms persist, worsen or new symptoms develop, then patient should return to the ED immediately. Disclaimer: Inadvertent spelling and grammatical errors are likely due to EHR/dictation software use and do not reflect on the overall quality of patient care. Also, please note that the electronic time recorded on this note does not necessarily reflect the actual time of the patient encounter. Departure Diagnosis: Primary Impression: Acute suppurative tonsillitis Condition: Stable Additional Instructions: Muchas parker por [facility] para harris servicio. Esperamos que en harris visita a la delia de emergencia harris problema medico haya sido solucionado y que se sienta mucho mejor. Para estar seguros que harris mejoria sigue en proceso, le pedimos el favor de hacer ean mary de seguimiento medico con harris doctor primario en los proximos 2-4 linton. Lleve con usted estos documentos y las medicinas recetadas. Si yen sintomas empeoran, NO SE ESPERE, por favor regrese a delia de emergencia INMEDIATAMENTE. En ciara que usted no tenga un mdico de atencin primaria: Llame al mdico o clnica comunitaria de referencia que aparece abajo isacc las horas de consultorio para hacer ean mary para que le vean. CLINICAS: [facility] [phone] [facility] [phone] [id number] [facility] [phone] [place] [id number] [phone] [place] [id number] [phone] [facility] [phone] DARCY CANTU MD Aug 27, 2018 01:18
[2018-08-27] MEDS ORDERED: IBUP-1542 PO (01:51)
[2018-08-27] MEDS ORDERED: AZIT250T PO (01:51)
== END 2018-08-27 02:03 | disposition home or self-care (01) ==
LOC: FTE 21:15
DX: J03.90 Acute tonsillitis, unspecified (principal)
CPT/HCPCS: 99283